=== PATIENT | male | born 1955 | race Caucasian/White ===

== ENCOUNTER → 2017-03-12 | Outpatient (CLI) | payer OTHER ==
[~2017-03-12] MED LIST: ALPR0.5T PO; AMLO10TA2 PO; ASPI81TA50 PO; ATEN50TA PO; CRESTOR5 MG PO; FLUT1DIS3 IH; INSU100V8 SQ; LEXAPRO10 MG PO; MELO15TA23 PO; METF-620 PO; QUIN40TA PO; TRIA1CAP3 PO
--- NOTE | 2017-03-12 15:44 | KCIC ---
Examination:Coronary calcium score CT chest without contrast History: History of hypercholesterolemia, hypertension, diabetes type 2 Exposure: One or more of the following individualized dose reduction techniques were utilized for this examination: 1. Automated exposure control 2. Adjustment of the mA and/or kV according to patient size 3. Use of iterative reconstruction technique Comparison: None available Technique: With retrospective electrocardiogram gating 3 mm thick axial reconstructed noncontrast images of the chest at the level of the coronary arteries was performed. Images were post processed and calcium score calculated using the modified Agatston Janowitz protocol. Findings: Total coronary calcium score is 3979. There is diffuse atherosclerotic calcification visualized coronary arteries. Plaque burden is 0 in the left main coronary artery. The calcium score in the LAD is 1496. The calcium score in the left circumflex artery is 989. The calcium score in the right coronary artery 1494. Aortic atherosclerosis calcifications identified. Gastric lap band is noted. Minimal right lung base atelectasis. Moderate degenerative changes thoracic spine. IMPRESSION: Total calcium score is 3979. The grading of coronary artery disease/cardiovascular risk is high with severe coronary artery calcifications. Electronically signed by: Rafael Chowdhury MD (03/12/2017 3:41 PM) [facility]
== END | disposition home or self-care (01) ==
LOC: KCIC CT 14:19
PROVIDERS: ATTEND Family Medicine
DX: I10 Essential (primary) hypertension (principal); E11.9 Type 2 diabetes mellitus without complications; E78.00 Pure hypercholesterolemia, unspecified; I25.10 Atherosclerotic heart disease of native coronary artery without angina pectoris; Z91.89 Other specified personal risk factors, not elsewhere classified
CPT/HCPCS: 75571

== ENCOUNTER → 2017-03-19 | Outpatient (CLI) | payer OTHER ==
[2017-03-19] VITALS (12 sets, daily range): BP systolic 105–135; BP diastolic 55–73
[~2017-03-19] VITALS: Ht 182.9 cm; Wt 145.6 kg
[~2017-03-19] MED LIST changes: +CONTRAST GIVEN MC PRN; +DICL75TA PO; +IODIXANOL 320 MG/ML 100 ML VIAL. IART ONE; +IODIXANOL 320 MG/ML 100 ML VIAL. ONE; +LIDOCAINE 2% 20 ML VIAL. IJ ONE; +LIDOCAINE 2% 20 ML VIAL. ONE; +MIDAZOLAM HCL/PF 2 MG/2 ML VIAL. IV ONE; +MIDAZOLAM HCL/PF 2 MG/2 ML VIAL. ONE; +NYST15PO9 TP; +fentaNYL PF VIAL 100 MCG/2 ML VIAL IV ONE; +fentaNYL PF VIAL 100 MCG/2 ML VIAL ONE
[2017-03-19 09:15] LABS: HEMATOCRIT 40.1 % (39.0-53.0); HEMOGLOBIN 12.8 g/dL (13.0-17.5); RED BLOOD COUNT 5.24 x10^6/uL (4.30-5.70); RED CELL DISTRIBUTION WIDTH 16.8 % (11.5-14.5); WHITE BLOOD COUNT 7.7 x10^3/uL (4.0-11.0)
[2017-03-19 09:25] LABS: INR 1.1 (0.8-1.1); PROTHROMBIN TIME PATIENT 13.2 SEC (11.7-14.0)
[2017-03-19 09:28] LABS: CALCIUM 9.6 mg/dL (8.5-10.1); CREATININE 1.2 mg/dL (0.7-1.3); GFR 61.3; POTASSIUM 4.3 mmol/L (3.5-5.1)
--- NOTE | 2017-03-19 17:33 | CARD ---
APPROVED REPORT Procedure(s) performed: MODERATE SEDATION: 28 MINUTES HISTORY diabetes mellitus with treatment: hypertension, dyslipidemia, family history of premature CAD. INDICATION The indication(s) include : dyspnea. CASE TECHNIQUE The patient was brought electively into the cardiac catheterization lab. A timeout was performed conf irming the patient's name, date of , procedure, and site of procedure. All necessary parties wer e wearing the appropriate personal protective equipment and radiation monitoring devices. After expla ining the risks and benefits of the procedure, informed consent was obtained.(See nursing notes for m edications administered). The right groin was sterilely prepped and draped. The right femoral groin w as infiltrated with 2% Lidocaine subcutaneous anesthesia. During this case, Fluoroscopy and low osmol ar contrast were used for imaging. A sheath was inserted into the right femoral artery without diffic ulty. Coronary angiography was performed using coronary diagnostic catheters. The left coronary syste m was accessed and visualized with a Diagnostic catheter. The right coronary system was accessed and visualized with a Diagnostic catheter. The left ventricle was accessed and visualized with a Diagnost ic catheter. Left ventricular/Aortic Valve gradient assessed on pullback. Left ventriculogram was per formed in CASILLAS projection. Pre-demployment femoral angiogram was performed . Closure device was deploy ed with a Angioseal without any complications. The patient tolerated the procedure well and there wer e no complications associated with the procedure. Coronary Angiography The patient's coronary anatomy is right dominant. The left main coronary artery is a large size vessel with diffuse calcification noted throughout this vessel and without significant stenosis. The left main bifurcates to the left anterior descending an d circumflex. The left anterior descending artery is a large size vessel with diffuse calcification noted throughou t this vessel and without significant stenosis. The first diagonal branch is a medium size vessel wit h diffuse calcification noted throughout this vessel and without significant stenosis. The second kimi gonal branch is a small size vessel with diffuse calcification noted throughout this vessel and witho ut significant stenosis. The third diagonal branch is a small size vessel with diffuse calcification noted throughout this vessel and without significant stenosis. The circumflex artery is a medium size vessel with diffuse calcification noted throughout this vessel and without significant stenosis. The first obtuse marginal branch is a medium size vessel with diff use calcification noted throughout this vessel and without significant stenosis. The second obtuse ma rginal branch is a small size vessel with diffuse calcification noted throughout this vessel and with out significant stenosis. The third obtuse marginal branch is a small size vessel with diffuse calcif ication noted throughout this vessel and without significant stenosis. The right coronary artery is a large size vessel with diffuse calcification noted throughout this ves boris and without significant stenosis. The right posterior descending artery is a small size vessel wi th diffuse calcification noted throughout this vessel and without significant stenosis. The right pos terolateral branch is a small size vessel with diffuse calcification noted throughout this vessel and without significant stenosis. Left Ventriculography The left ventricle is normal in size with normal contractility. The left ventricular ejection fractio n is estimated to be 60%%. The left ventricular end diastolic pressure is 15 mmHg. There was no gradi ent across the aortic valve upon pullback. Conclusion This patient has severe and extensive calcifications of all of the coronaries however there is no paige dence of any significant stenosis in his coronaries. In view of this I would recommend medical treatment for this patient.
== END | disposition home or self-care (01) ==
LOC: CCL 08:49
PROVIDERS: ATTEND Internal Medicine Cardiovascular Disease
DX: I25.10 Atherosclerotic heart disease of native coronary artery without angina pectoris (principal); E78.5 Hyperlipidemia, unspecified; I10 Essential (primary) hypertension; E11.9 Type 2 diabetes mellitus without complications; E78.00 Pure hypercholesterolemia, unspecified; J45.909 Unspecified asthma, uncomplicated; F41.9 Anxiety disorder, unspecified; F32.9 Major depressive disorder, single episode, unspecified; Z87.39 Personal history of other diseases of the musculoskeletal system and connective tissue; Z86.39 Personal history of other endocrine, nutritional and metabolic disease
CPT/HCPCS: 36415; 80048; 85027; 85610; 93458; 99152; 99153; C1769; C1771; C1892; J1644; J2250; J3010; Q9967; G0269; J2001

== ENCOUNTER → 2021-05-13 | Outpatient (CLI) | payer MEDICARE ==
[2017-03-19 13:37] VITALS: BP 125/63
[~2021-05-13] MED LIST changes: +AMLO-187 PO; -AMLO10TA2 PO; -CONTRAST GIVEN MC PRN; -IODIXANOL 320 MG/ML 100 ML VIAL. IART ONE; -IODIXANOL 320 MG/ML 100 ML VIAL. ONE; -LIDOCAINE 2% 20 ML VIAL. IJ ONE; -LIDOCAINE 2% 20 ML VIAL. ONE; -METF-620 PO; +METF10007 PO; -MIDAZOLAM HCL/PF 2 MG/2 ML VIAL. IV ONE; -MIDAZOLAM HCL/PF 2 MG/2 ML VIAL. ONE; -fentaNYL PF VIAL 100 MCG/2 ML VIAL IV ONE; -fentaNYL PF VIAL 100 MCG/2 ML VIAL ONE
--- NOTE | 2021-05-13 11:43 | KCIC ---
AP and Lateral Views of the Chest 05/13/2021 11:18 AM Indication: Reason: Cough for 3 weeks, fatigue, evaluate for pneumonia. / Spl. Instructions: Nonsmoke r / History: Comparison: None Findings: Heart is mildly enlarged. No pneumothorax, or pleural effusion is seen. No focal consolidat radha infiltrate is seen. No acute osseous changes are identified. IMPRESSION: 1. Cardiomegaly 2. No other acute cardiopulmonary abnormality is identified Electronically signed by: Joshua Handy MD (05/13/2021 11:41 AM) [id number]
== END ==
LOC: KCIC 11:07
PROVIDERS: ATTEND Family Medicine
DX: I51.7 Cardiomegaly (principal); R05.9 Cough, unspecified; R53.83 Other fatigue; E11.69 Type 2 diabetes mellitus with other specified complication
CPT/HCPCS: 71046

== ENCOUNTER → 2021-06-06 | Outpatient (CLI) | payer MEDICARE, OTHER ==
[2017-03-19 13:37] VITALS: BP 125/63
--- NOTE | 2021-06-06 17:20 | KCIC ---
XR CHEST 2V History: Reason: Cough, rhonchi, wheezing LUH, LLL / Spl. Instructions: / History: Comparison: May 13, 2021 Findings: No consolidation or pleural effusion. Normal heart size. No pneumothorax. Impression: 1. No acute cardiopulmonary process. Electronically signed by: Sheng Penny DO (06/06/2021 5:18 PM) [id number]
== END ==
LOC: KCIC 12:41
PROVIDERS: ATTEND Family Medicine
DX: R05.9 Cough, unspecified (principal); E11.69 Type 2 diabetes mellitus with other specified complication; E66.9 Obesity, unspecified
CPT/HCPCS: 71046